=== PATIENT | male | born 1990 | race Caucasian/White ===

== ENCOUNTER 2023-08-11 03:27 | Emergency (ER) | payer MEDICAID ==
[~2023-08-11] VITALS: Ht 172.7 cm; Wt 67.0 kg
[2023-08-11 03:27] VITALS: TEMP 96.6
[~2023-08-11 03:27] MED LIST: BUPRPOW2 OR; BUSP15TA OR; METH1TAB40 OR; ZOLO50TA OR
[2023-08-11 04:36] VITALS: BP 123/86; O2SAT 96
== END 2023-08-11 05:32 | disposition left against medical advice (07) ==
LOC: M ED 03:27
DX: Z53.21 Procedure and treatment not carried out due to patient leaving prior to being seen by health care provider (principal)

== ENCOUNTER 2023-08-24 08:21 | Emergency (ER) | payer MEDICAID ==
[~2023-08-24] VITALS: Ht 172.7 cm; Wt 68.2 kg
[2023-08-24] MEDS ORDERED: METOCLOPRAMIDE 10MG TAB PO ONE (10:15)
[2023-08-24] MEDS ORDERED: KETOROLAC 30 MG/ML 1ML VIAL IM ONE (10:15)
[2023-08-24 11:25] VITALS: BP 143/73
[2023-08-24 11:45] VITALS: BP 139/81; TEMP 99.6; O2SAT 100
== END 2023-08-24 11:49 | disposition home or self-care (01) ==
LOC: M ED 08:21 → EDBD 08:21 → M ED 11:49
DX: F11.93 Opioid use, unspecified with withdrawal (principal); F41.9 Anxiety disorder, unspecified; F17.210 Nicotine dependence, cigarettes, uncomplicated; Z88.0 Allergy status to penicillin; Z88.8 Allergy status to other drugs, medicaments and biological substances
CPT/HCPCS: 90471; 96372; 99284; J1885

== ENCOUNTER 2023-12-24 16:03 | Emergency (ER) | payer MEDICAID ==
[~2023-12-24] VITALS: Ht 172.7 cm; Wt 63.9 kg
[~2023-12-24 16:03] MED LIST changes: +ALPR0.5T3 PO; +BUPR1SUB5 SL; +BUSP10TA PO; +FOLI1TAB11 PO; +LEVO1TAB40 PO; +SERO200T PO; +THIA100T7 PO
[2023-12-24] MEDS ORDERED: XANA0.5T PO ×2 (16:52→21:19)
[2023-12-24] MEDS ORDERED: FOLI1TAB11 PO (16:52)
[2023-12-24] MEDS ORDERED: QUET200T2 PO ×2 (16:52→21:19)
[2023-12-24] MEDS ORDERED: BUPR1SUB5 SL (16:52)
[2023-12-24] MEDS ORDERED: SERO200T PO (16:52)
[2023-12-24] MEDS ORDERED: BUSP10TA PO ×2 (16:52→21:19)
[2023-12-24] MEDS ORDERED: THIA100TA PO (16:53)
[2023-12-24] MEDS ORDERED: LEVO1TAB40 PO (16:58)
[2023-12-24] MEDS ORDERED: HOME MED LIST COMPLETE! XX SCH (17:00)
[2023-12-24 17:37] LABS: AMPHETAMINES LEVEL URINE NEGATIVE (NEGATIVE); BARBITURATES URINE NEGATIVE (NEGATIVE); CANNABINOIDS URINE NEGATIVE (NEGATIVE); COCAINE METABOLITE URINE NEGATIVE (NEGATIVE); METHADONE URINE NEGATIVE (NEGATIVE); OPIATES URINE NEGATIVE (NEGATIVE); PHENCYCLIDINE URINE NEGATIVE (NEGATIVE)
[2023-12-24 17:44] LABS: BENZODIAZEPINES URINE POSITIVE (NEGATIVE)
[2023-12-24] MEDS: NICOTINE 21MG/24HR 1 EA TRANSDERMAL TD ONE (19:30)
[2023-12-24] MEDS: busPIRone 10 MG TAB PO ONE (19:35)
[2023-12-24] MEDS: ALPRAZolam 0.5 MG TAB PO ONE (19:36)
[2023-12-24] MEDS: QUEtiapine FUMARATE 200 MG TAB PO ONE (19:57)
[2023-12-24 21:17] VITALS: BP 135/75; TEMP 98.5; O2SAT 100
== END 2023-12-24 21:30 | disposition home or self-care (01) ==
LOC: M ED 16:03
DX: F43.0 Acute stress reaction (principal); F19.10 Other psychoactive substance abuse, uncomplicated; F10.10 Alcohol abuse, uncomplicated; Z88.0 Allergy status to penicillin; Z88.8 Allergy status to other drugs, medicaments and biological substances; Z79.899 Other long term (current) drug therapy

== ENCOUNTER 2024-03-24 13:35 | Inpatient (IN) | payer MEDICAID, OTHER ==
[~2024-03-24] VITALS: Ht 172.7 cm; Wt 68.2 kg
[~2024-03-24 13:35] MED LIST changes: +QUET200T2 PO; +THIA100TA PO; +XANA0.5T PO
[2024-03-24] MEDS: NS 1,000 ML IV ONE ×2 (15:51→20:55)
[2024-03-24 16:08] LABS: BASO % 0.2 % (0.0-1.0); EOS % 0.4 % (0.0-3.0); HEMOGLOBIN 15.6 g/dl (13.5-17.5); LYMPH # 1.6 10^3/uL (1.5-5.0); LYMPH % 15.1 % (24.0-44.0); MEAN CORPUSCULAR HEMOGLOBIN 29.1 pg (27.0-33.0); MEAN CORPUSCULAR HGB CONC 33.9 g/dl (32.0-36.5); MEAN CORPUSCULAR VOLUME 85.8 fl (80.0-96.0); MONO # 0.9 10^3/uL (0.0-0.8); MONO % 8.1 % (2.0-8.0); NEUTROPHILS # 8.2 10^3/uL (1.5-8.5); PLATELET COUNT, AUTOMATED 309 10^3/uL (150-450); RED BLOOD COUNT 5.36 10^6/uL (4.30-6.10); WHITE BLOOD COUNT 10.7 10^3/uL (4.0-10.0)
[2024-03-24] MEDS ORDERED: QUET50TA4 PO ×2 (16:13)
[2024-03-24] MEDS ORDERED: ONDA-83 PO (16:17)
[2024-03-24] MEDS ORDERED: LOPE1CAP5 PO (16:17)
[2024-03-24] MEDS ORDERED: MULT-90 PO (16:17)
[2024-03-24] MEDS ORDERED: DIPH-435 PO (16:17)
[2024-03-24] MEDS ORDERED: MAGN400T2 PO (16:17)
[2024-03-24] MEDS: LORazepam 2 MG/ML 1ML VIAL IV PRN (16:25)
[2024-03-24 16:29] LABS: ALBUMIN 3.6 G/DL (3.2-5.2); ALKALINE PHOSPHATASE 69 U/L (46-116); ALT/SGPT 19 U/L (7.0-40); AST/SGOT 20 U/L (<34); BILIRUBIN,TOTAL 0.4 MG/DL (0.3-1.2); BLOOD UREA NITROGEN 20 MG/DL (9-23); CALCIUM LEVEL 9.1 MG/DL (8.5-10.1); CARBON DIOXIDE LEVEL 23 MMOL/L (20-31); CHLORIDE LEVEL 106 MMOL/L (98-107); CREATININE FOR GFR 0.79 MG/DL (0.70-1.30); GLOMERULAR FILTRATION RATE > 60.0 (>60); GLUCOSE, FASTING 99 MG/DL (60-100); POTASSIUM SERUM 4.7 MMOL/L (3.5-5.1); SODIUM LEVEL 136 MMOL/L (136-145); TOTAL PROTEIN 7.1 G/DL (5.7-8.2)
[2024-03-24 16:33] LABS: HEPATITIS B SURFACE ANTIBODY POSITIVE (POSITIVE)
[2024-03-24] MEDS ORDERED: CLON2TAB7 PO (16:34)
[2024-03-24] MEDS ORDERED: CLON1TAB17 PO (16:34)
[2024-03-24] MEDS ORDERED: ACET300T48 PO (16:34)
[2024-03-24] MEDS ORDERED: CLONI1TA PO (16:37)
[2024-03-24] MEDS ORDERED: QUET1TAB17 PO (16:40)
[2024-03-24] MEDS ORDERED: CLON1TAB8 PO (16:41)
[2024-03-24] MEDS ORDERED: HOME MED LIST COMPLETE! XX SCH (16:45)
[2024-03-24 16:46] LABS: HEPATITIS B SURFACE ANTIGEN NEGATIVE (NEGATIVE)
[2024-03-24] MEDS ORDERED: MOM 30ML SUSPENSION UDC PO PRN (16:55)
[2024-03-24] MEDS ORDERED: MAALOX 30 ML SUSP *UDC PO PRN (16:55)
[2024-03-24 16:59] LABS: HIV 1&2 SCREEN NEGATIVE (NEGATIVE)
[2024-03-24] MEDS ORDERED: ONDANSETRON 4MG 2ML VIAL As Ordered ONE (16:59)
[2024-03-24] MEDS ORDERED: fentaNYL 100 MCG/2 ML INJECTION As Ordered ONE (16:59)
[2024-03-24] MEDS ORDERED: LIDOCAINE 2% 100MG/5ML SDV (FOR ANES.) As Ordered ONE (16:59)
[2024-03-24] MEDS ORDERED: propofoL 200 MG/20 ML VIAL As Ordered ONE (16:59)
[2024-03-24] MEDS ORDERED: MIDAZOLAM INJ 2MG/2ML VIAL As Ordered ONE (16:59)
[2024-03-24 17:06] LABS: HEPATITIS C VIRUS ABY INDEX 0.05 INDEX (<0.8)
[2024-03-24] MEDS ORDERED: KETAMINE HCL 200MG/20ML VIAL As Ordered ONE (17:52)
[2024-03-24] MEDS: LevoFLOXacin IV 500 MG in IV 1 EA IV ONE (17:55)
[2024-03-24] MEDS ORDERED: MIDAZOLAM 5MG/ML 1ML VIAL As Ordered ONE (18:00)
[2024-03-24] MEDS: LevoFLOXacin 500MG/100ML IV BAG As Ordered ONE (18:00)
[2024-03-24] MEDS ORDERED: ESMOLOL INJ 100MG/10ML VIAL As Ordered ONE (18:12)
[2024-03-24] MEDS ORDERED: GLYCOPYRROLATE INJ 0.2 MG/ML 2 ML VIAL As Ordered ONE (18:12)
[2024-03-24 20:00] VITALS: BP 88/68
[2024-03-24] MEDS: BUPRENORPHINE/NALOXONE 8-2MG SUBLINGUAL TABLET(SUBOXONE) SL SCH (20:03)
[2024-03-24 20:10] VITALS: BP 88/68; TEMP 97.7; O2SAT 98
[2024-03-24 20:40] VITALS: BP 90/63; TEMP 98.1; O2SAT 99
[2024-03-24] MEDS: QUEtiapine FUMARATE 100 MG TAB PO SCH (20:54)
[2024-03-24] MEDS: THIAMINE 100 MG TAB PO SCH (20:55)
[2024-03-24] MEDS: NS 1,000 ML IV SCH (20:56)
[2024-03-24 21:08] LABS: ETHYL ALCOHOL (ETHANOL) 0.004 % (0.000-0.010)
[2024-03-24 21:10] VITALS: BP 94/57; TEMP 98.1; O2SAT 97
[2024-03-24 21:10] LABS: SALICYLATE LEVEL < 3.0 MG/DL (<30)
[2024-03-24 22:10] VITALS: BP 117/69; TEMP 99; O2SAT 97
[2024-03-24 23:10] VITALS: BP 109/69; TEMP 98.2; O2SAT 95
[2024-03-25] VITALS (10 sets, daily range): BP systolic 100–129; BP diastolic 71–90; TEMP 97.5–98.8; O2SAT 96–100
[2024-03-25] MEDS: ACETAMINOPHEN TAB 650MG DOSE (2X325MG) PO PRN (01:11)
[2024-03-25] MEDS ORDERED: cloNIDine 0.1MG TABLET PO PRN (01:20)
[2024-03-25 03:34] LABS: AMPHETAMINES LEVEL URINE NEGATIVE (NEGATIVE); BARBITURATES URINE NEGATIVE (NEGATIVE); METHADONE URINE NEGATIVE (NEGATIVE); PHENCYCLIDINE URINE NEGATIVE (NEGATIVE)
[2024-03-25 04:03] LABS: BENZODIAZEPINES URINE POSITIVE (NEGATIVE); CANNABINOIDS URINE POSITIVE (NEGATIVE); COCAINE METABOLITE URINE POSITIVE (NEGATIVE); OPIATES URINE POSITIVE (NEGATIVE)
[2024-03-25 06:12] LABS: BASO % 0.3 % (0.0-1.0); EOS # 0.1 10^3/uL (0.0-0.5); EOS % 1.4 % (0.0-3.0); HEMATOCRIT 38.6 % (42.0-52.0); LYMPH # 2.1 10^3/uL (1.5-5.0); LYMPH % 22.7 % (24.0-44.0); MEAN CORPUSCULAR HEMOGLOBIN 29.3 pg (27.0-33.0); MEAN CORPUSCULAR HGB CONC 33.4 g/dl (32.0-36.5); MEAN CORPUSCULAR VOLUME 87.7 fl (80.0-96.0); MONO # 0.7 10^3/uL (0.0-0.8); MONO % 7.7 % (2.0-8.0); NEUTROPHILS # 6.4 10^3/uL (1.5-8.5); NEUTROPHILS % 67.6 % (36.0-66.0); PLATELET COUNT, AUTOMATED 260 10^3/uL (150-450); WHITE BLOOD COUNT 9.4 10^3/uL (4.0-10.0)
[2024-03-25 06:14] LABS: HEMOGLOBIN 12.9 g/dl (13.5-17.5)
[2024-03-25 06:28] LABS: BLOOD UREA NITROGEN 15 MG/DL (9-23); CALCIUM LEVEL 8.2 MG/DL (8.5-10.1); CARBON DIOXIDE LEVEL 24 MMOL/L (20-31); CHLORIDE LEVEL 107 MMOL/L (98-107); CREATININE FOR GFR 0.82 MG/DL (0.70-1.30); GLOMERULAR FILTRATION RATE > 60.0 (>60); GLUCOSE, FASTING 94 MG/DL (60-100); MAGNESIUM LEVEL 1.7 MG/DL (1.8-2.4); PHOSPHORUS LEVEL 3.1 MG/DL (2.5-4.9); POTASSIUM SERUM 4.3 MMOL/L (3.5-5.1); SODIUM LEVEL 135 MMOL/L (136-145)
[2024-03-25] MEDS: MAG SULF 1GM/100ML (MAG RUN) 1 GM in IV 1 EA IV SCH (08:11)
[2024-03-25] MEDS: MULTIVITAMINS/MINERALS THERAP 1 TAB PO SCH (08:23)
[2024-03-25] MEDS: FOLIC ACID 1MG TAB PO SCH (08:23)
== END 2024-03-25 18:55 | DRG 468 ==
LOC: M ED 13:35 → EDBD 13:35 → M ED INP 16:05 → M MSPAV 20:08
PROVIDERS: ADMIT Student in an Organized Health Care Education/Training Program; ATTEND Student in an Organized Health Care Education/Training Program
PROC: 0TCD8ZZ Extirpation of Matter from Urethra, Via Natural or Artificial Opening Endoscopic (ICD-10-PCS; principal; 2024-03-24 17:04)
DX: T19.0XXA Foreign body in urethra, initial encounter (principal); F11.13 Opioid abuse with withdrawal; F39 Unspecified mood [affective] disorder; F60.3 Borderline personality disorder; R33.9 Retention of urine, unspecified; F43.10 Post-traumatic stress disorder, unspecified; F15.10 Other stimulant abuse, uncomplicated; F14.10 Cocaine abuse, uncomplicated; Z79.899 Other long term (current) drug therapy; Z88.0 Allergy status to penicillin; Z88.8 Allergy status to other drugs, medicaments and biological substances; Z91.018 Allergy to other foods; Z91.51 Personal history of suicidal behavior; X83.8XXA Intentional self-harm by other specified means, initial encounter; Y92.149 Unspecified place in prison as the place of occurrence of the external cause; Y93.9 Activity, unspecified; Y99.8 Other external cause status

== ENCOUNTER 2024-03-26 20:12 | Inpatient (IN) | payer OTHER ==
[~2024-03-26] VITALS: Ht 172.7 cm; Wt 67.6 kg
[~2024-03-26 20:12] MED LIST changes: +ACET300T48 PO; +CLON1TAB17 PO; +CLON1TAB8 PO; +CLON2TAB7 PO; +CLONI1TA PO; +DIPH-435 PO; +LOPE1CAP5 PO; +MAGN400T2 PO; +MULT-90 PO; +ONDA-83 PO; +QUET1TAB17 PO; +QUET50TA4 PO
[2024-03-26] MEDS: LIDOCAINE 2% 5ML JELLY UROJET TOP ONE (20:55)
[2024-03-26 21:08] LABS: BASO # 0.1 10^3/uL (0.0-0.2); BASO % 0.7 % (0.0-1.0); EOS # 0.2 10^3/uL (0.0-0.5); HEMOGLOBIN 14.3 g/dl (13.5-17.5); LYMPH # 1.7 10^3/uL (1.5-5.0); LYMPH % 22.8 % (24.0-44.0); MEAN CORPUSCULAR HEMOGLOBIN 29.6 pg (27.0-33.0); MONO # 0.8 10^3/uL (0.0-0.8); MONO % 10.2 % (2.0-8.0); NEUTROPHILS # 4.8 10^3/uL (1.5-8.5); PLATELET COUNT, AUTOMATED 294 10^3/uL (150-450); RED BLOOD COUNT 4.83 10^6/uL (4.30-6.10); WHITE BLOOD COUNT 7.5 10^3/uL (4.0-10.0)
[2024-03-26 21:20] LABS: INR 0.96; PROTHROMBIN TIME 12.6 SECONDS (12.5-14.5)
[2024-03-26 21:32] LABS: ETHYL ALCOHOL (ETHANOL) < 0.003 % (0.000-0.010)
[2024-03-26 21:34] LABS: SALICYLATE LEVEL < 3.0 MG/DL (<30)
[2024-03-26 21:36] LABS: THYROID STIMULATING HORMONE 0.578 uIU/ML (0.55-4.78)
[2024-03-26 21:45] LABS: ALBUMIN 3.5 G/DL (3.2-5.2); ALKALINE PHOSPHATASE 66 U/L (46-116); ALT/SGPT 18 U/L (7.0-40); AST/SGOT 19 U/L (<34); BILIRUBIN,TOTAL < 0.2 MG/DL (0.3-1.2); BLOOD UREA NITROGEN 14 MG/DL (9-23); CALCIUM LEVEL 9.3 MG/DL (8.5-10.1); CARBON DIOXIDE LEVEL 28 MMOL/L (20-31); CHLORIDE LEVEL 105 MMOL/L (98-107); CREATININE FOR GFR 0.66 MG/DL (0.70-1.30); GLOMERULAR FILTRATION RATE > 60.0 (>60); GLUCOSE, FASTING 110 MG/DL (60-100); MAGNESIUM LEVEL 1.9 MG/DL (1.8-2.4); SODIUM LEVEL 140 MMOL/L (136-145); TOTAL PROTEIN 6.5 G/DL (5.7-8.2)
[2024-03-26] MEDS: diazePAM 10MG/2ML SYRINGE IV ONE (23:38)
[2024-03-27] VITALS (10 sets, daily range): BP systolic 96–130; BP diastolic 66–90; TEMP 97–98.1; O2SAT 95–100
[2024-03-27] MEDS ORDERED: CLON-412 PO (00:57)
[2024-03-27] MEDS ORDERED: ACET-716 PO (00:57)
[2024-03-27] MEDS ORDERED: CLON1TAB8 PO (00:57)
[2024-03-27] MEDS: NS 1,000 ML IV SCH (01:00)
[2024-03-27] MEDS ORDERED: MULT-40 PO (01:11)
[2024-03-27] MEDS ORDERED: HOME MED LIST COMPLETE! XX SCH (01:15)
[2024-03-27] MEDS: ACETAMINOPHEN *IV* 1,000 MG in IV 1 EA IV ONE ×3 (03:16→21:27)
[2024-03-27] MEDS: diazePAM 10MG/2ML SYRINGE IV PRN (05:45)
[2024-03-27 08:42] LABS: HEMATOCRIT 40.8 % (42.0-52.0); HEMOGLOBIN 13.2 g/dl (13.5-17.5); MEAN CORPUSCULAR HEMOGLOBIN 29.4 pg (27.0-33.0); MEAN CORPUSCULAR HGB CONC 32.4 g/dl (32.0-36.5); MEAN CORPUSCULAR VOLUME 90.9 fl (80.0-96.0); PLATELET COUNT, AUTOMATED 220 10^3/uL (150-450); RED BLOOD COUNT 4.49 10^6/uL (4.30-6.10); WHITE BLOOD COUNT 5.4 10^3/uL (4.0-10.0)
[2024-03-27] MEDS: MIRALAX *UNIT DOSE* 17GM PACKET PO SCH (09:00)
[2024-03-27 09:05] LABS: BLOOD UREA NITROGEN 14 MG/DL (9-23); CALCIUM LEVEL 8.8 MG/DL (8.5-10.1); CARBON DIOXIDE LEVEL 26 MMOL/L (20-31); CHLORIDE LEVEL 108 MMOL/L (98-107); CREATININE FOR GFR 0.78 MG/DL (0.70-1.30); GLOMERULAR FILTRATION RATE > 60.0 (>60); GLUCOSE, FASTING 105 MG/DL (60-100); POTASSIUM SERUM 4.3 MMOL/L (3.5-5.1); SODIUM LEVEL 138 MMOL/L (136-145)
[2024-03-27] MEDS: THIAMINE 200MG 2ML VIAL IV SCH (09:55)
[2024-03-27] MEDS: HYDROMORPHONE HCL 0.5 MG/ 0.5 ML SYRINGE IV ONE (09:56)
[2024-03-27] MEDS: PANTOPRAZOLE 40MG VIAL IV ONE (09:57)
[2024-03-27] MEDS ORDERED: LIDOCAINE 2% 100MG/5ML SDV (FOR ANES.) As Ordered ONE (10:23)
[2024-03-27] MEDS ORDERED: propofoL 200 MG/20 ML VIAL As Ordered ONE (10:23)
[2024-03-27] MEDS ORDERED: ROCURONIUM BROMIDE 50MG/5ML VIAL As Ordered ONE (10:23)
[2024-03-27] MEDS ORDERED: ONDANSETRON 4MG 2ML VIAL As Ordered ONE (10:23)
[2024-03-27] MEDS ORDERED: KETOROLAC 60MG 2ML VIAL As Ordered ONE (10:23)
[2024-03-27] MEDS ORDERED: dexmedeTOMIDine (4MCG/ML)200MCG/50ML BTL (PRECEDEX) As Ordered ONE (10:23)
[2024-03-27] MEDS ORDERED: fentaNYL 100 MCG/2 ML INJECTION As Ordered ONE (10:24)
[2024-03-27] MEDS ORDERED: KETAMINE HCL 200MG/20ML VIAL As Ordered ONE (10:24)
[2024-03-27] MEDS ORDERED: SUGAMMADEX SODIUM 500 MG/5 ML VIAL (BRIDION) As Ordered ONE (10:24)
[2024-03-27] MEDS ORDERED: SEVOFLURANE INHAL SOLN 250 ML BTL As Ordered ONE (10:24)
[2024-03-27] MEDS: LR 2,000 ML IV ONE (10:50)
[2024-03-27] MEDS: ceFAZolin 2 GM/D5W 50 ML IV BAG As Ordered ONE (12:23)
[2024-03-27] MEDS ORDERED: ACETAMINOPHEN 1000MG 100ML IV BAG As Ordered ONE (12:33)
[2024-03-27] MEDS: LR 1,000 ML IV SCH (13:00)
[2024-03-27] MEDS: SENOKOT S TAB PO SCH (17:20)
[2024-03-27] MEDS: MOM 30ML SUSPENSION UDC PO ONE (17:50)
[2024-03-27] MEDS: NS 1,000 ML IV ONE (17:51)
[2024-03-27] MEDS: KETOROLAC 30 MG/ML 1ML VIAL IV ONE (17:51)
[2024-03-27] MEDS: MIRALAX *UNIT DOSE* 17GM PACKET PO ONE (17:51)
[2024-03-27] MEDS: ONDANSETRON 4MG TAB PO PRN (18:24)
[2024-03-27] MEDS: traMADol 50 MG TAB PO ONE (18:54)
[2024-03-27] MEDS: QUEtiapine FUMARATE 50MG TAB PO SCH (20:12)
[2024-03-27] MEDS: diphenhydrAMINE 25MG CAP PO SCH (20:12)
[2024-03-27] MEDS: clonazePAM 1 MG TAB PO SCH (20:12)
[2024-03-27] MEDS: cloNIDine 0.1MG TABLET PO SCH (21:00)
[2024-03-27] MEDS ORDERED: cloNIDine 0.1MG TABLET PO SCH (21:00)
[2024-03-28] VITALS: BP 139/82; TEMP 97.5; O2SAT 96
[2024-03-28 03:55] VITALS: BP 118/79; TEMP 97.3; O2SAT 100
[2024-03-28] MEDS: KETOROLAC 30 MG/ML 1ML VIAL IV ONE (05:18)
[2024-03-28 06:06] LABS: HEMATOCRIT 38.8 % (42.0-52.0); HEMOGLOBIN 13.1 g/dl (13.5-17.5); MEAN CORPUSCULAR HEMOGLOBIN 29.5 pg (27.0-33.0); MEAN CORPUSCULAR HGB CONC 33.8 g/dl (32.0-36.5); MEAN CORPUSCULAR VOLUME 87.4 fl (80.0-96.0); PLATELET COUNT, AUTOMATED 260 10^3/uL (150-450); RED BLOOD COUNT 4.44 10^6/uL (4.30-6.10); WHITE BLOOD COUNT 11.2 10^3/uL (4.0-10.0)
[2024-03-28 06:45] LABS: ALBUMIN 2.9 G/DL (3.2-5.2); ALKALINE PHOSPHATASE 62 U/L (46-116); ALT/SGPT 12 U/L (7.0-40); AST/SGOT 10 U/L (<34); BILIRUBIN,TOTAL < 0.2 MG/DL (0.3-1.2); BLOOD UREA NITROGEN 17 MG/DL (9-23); CALCIUM LEVEL 8.9 MG/DL (8.5-10.1); CARBON DIOXIDE LEVEL 26 MMOL/L (20-31); CHLORIDE LEVEL 106 MMOL/L (98-107); CREATININE FOR GFR 0.89 MG/DL (0.70-1.30); GLOMERULAR FILTRATION RATE > 60.0 (>60); GLUCOSE, FASTING 102 MG/DL (60-100); POTASSIUM SERUM 4.2 MMOL/L (3.5-5.1); SODIUM LEVEL 137 MMOL/L (136-145); TOTAL PROTEIN 5.8 G/DL (5.7-8.2)
[2024-03-28] MEDS: QUEtiapine FUMARATE 25 MG TAB PO SCH (08:19)
[2024-03-28] MEDS: FOLIC ACID 1MG TAB PO SCH (08:19)
[2024-03-28] MEDS: THIAMINE 100 MG TAB PO SCH (08:21)
[2024-03-28] MEDS: MAGNESIUM OXIDE 400MG TAB (MAG-OX) PO SCH (08:21)
== END 2024-03-28 10:30 | DRG 468 ==
LOC: M ED 20:12 → M ED INP 03-27 00:55 → M MS5PR 03-27 15:10
PROVIDERS: ADMIT Preventive Medicine Undersea and Hyperbaric Medicine; ATTEND General Practice
PROC: 0TCD8ZZ Extirpation of Matter from Urethra, Via Natural or Artificial Opening Endoscopic (ICD-10-PCS; principal; 2024-03-27 12:00)
DX: T19.0XXA Foreign body in urethra, initial encounter (principal); R45.851 Suicidal ideations; F39 Unspecified mood [affective] disorder; F15.10 Other stimulant abuse, uncomplicated; F10.10 Alcohol abuse, uncomplicated; F11.10 Opioid abuse, uncomplicated; R33.9 Retention of urine, unspecified; X83.8XXA Intentional self-harm by other specified means, initial encounter; Y92.149 Unspecified place in prison as the place of occurrence of the external cause; Y93.9 Activity, unspecified; Y99.8 Other external cause status